=== PATIENT | male | born 1945 | race Caucasian/White ===

== ENCOUNTER → 2023-10-14 06:23 | Day surgery (SDC) | payer MEDICARE, SELFPAY | LOC: GI 06:23 | PROVIDERS: ATTENDING PHYSICIAN Internal Medicine Gastroenterology | DX: Z12.11 Encounter for screening for malignant neoplasm of colon (principal); D12.2 Benign neoplasm of ascending colon; D12.4 Benign neoplasm of descending colon; D12.5 Benign neoplasm of sigmoid colon; K57.30 Diverticulosis of large intestine without perforation or abscess without bleeding; K64.8 Other hemorrhoids; Z86.010 Personal history of colon polyps | CPT/HCPCS: 45380; 88305 ==

== ENCOUNTER → 2024-01-31 14:03 | Outpatient (REF) | payer MEDICARE, SELFPAY | LOC: HWRAD 14:03 | PROVIDERS: ATTENDING PHYSICIAN Physician Assistant Medical | DX: M54.6 Pain in thoracic spine (principal); S22.060G Wedge compression fracture of T7-T8 vertebra, subsequent encounter for fracture with delayed healing; M80.80XG Other osteoporosis with current pathological fracture, unspecified site, subsequent encounter for fracture with delayed healing | CPT/HCPCS: 72128 ==

== ENCOUNTER → 2024-03-21 11:19 | Outpatient (REF) | payer MEDICARE, SELFPAY ==
[2024-03-21 13:57] LABS: Glycohemoglobin (HgbA1c) 5.6 % (4.0-5.6)
[2024-03-21 14:13] LABS: ALT (SGPT) 28 U/L (0-50); AST (SGOT) 29 U/L (17-59); Albumin 4.6 g/dl (3.5-5.0); Alkaline Phosphatase 58 U/L (38-126); Blood Urea Nitrogen 21 mg/dl (9-20); Calcium 9.9 mg/dl (8.4-10.2); Carbon Dioxide 23 mmol/L (22-30); Chloride 104 mmol/L (98-107); Glucose 88 mg/dl (70-99); Potassium 4.8 mmol/L (3.5-5.1); Sodium 141 mmol/L (135-145); Total Bilirubin 0.5 mg/dl (0.2-1.3); Total Protein 7.5 g/dl (6.3-8.2); eGFR > 60.00
== END ==
LOC: REG 11:19
PROVIDERS: ATTENDING PHYSICIAN Internal Medicine Endocrinology, Diabetes & Metabolism
DX: R73.03 Prediabetes (principal)
CPT/HCPCS: 36415; 80053; 83036

== ENCOUNTER → 2024-07-16 13:33 | Outpatient (REF) | payer MEDICARE, SELFPAY | LOC: MRI 3T 13:33 | PROVIDERS: ATTENDING PHYSICIAN Orthopaedic Surgery | DX: M25.511 Pain in right shoulder (principal) | CPT/HCPCS: 73221 ==

== ENCOUNTER → 2024-10-05 06:35 | Outpatient (REF) | payer MEDICARE, SELFPAY ==
[2024-10-05 07:12] LABS: % Basophils 0.8 % (0-2); % Eosinophils 4.5 % (0-6); % Immature Granulocytes 0.2 % (0-0.5); % Lymphocytes 41.5 % (20.5-51.1); % Monocytes 11.7 % (1.7-9.3); % Neutrophils 41.3 % (42.2-75.2); Absolute Eosinophils 0.2 10^3/uL (0-0.7); Absolute Lymphocytes 2.1 10^3/uL (1.2-3.4); Absolute Monocytes 0.6 10^3/uL (0.1-0.6); Absolute Neutrophils 2.1 10^3/uL (1.4-6.5); Hematocrit 39.1 % (39.0-52.0); Hemoglobin 13.4 g/dL (13.0-18.0); Mean Corp Hgb Conc. 34.3 g/dL (33.0-37.0); Mean Corpuscular Hgb 33.7 pg (27.0-31.0); Mean Corpuscular Volume 98.2 fL (80.0-94.0); Mean Platelet Volume 10.4 fL (7.4-10.4); Nucleated Red Blood Cells % 0 % (-); Platelet Count 141 10^3/uL (130-400); Red Blood Cell Count 3.98 10^6/uL (4.70-6.10); Red Cell Dist. Width 13.6 % (11.5-14.5); White Blood Cell Count 5.1 10^3/uL (4.8-10.8)
[2024-10-05 07:41] LABS: ALT (SGPT) 27 U/L (0-50); AST (SGOT) 25 U/L (17-59); Albumin 4.2 g/dl (3.5-5.0); Alkaline Phosphatase 44 U/L (38-126); Blood Urea Nitrogen 18 mg/dl (9-20); Calcium 9.4 mg/dl (8.4-10.2); Carbon Dioxide 26 mmol/L (22-30); Chloride 110 mmol/L (98-107); Glucose 105 mg/dl (70-99); HDL Cholesterol 55 mg/dl; LDL Cholesterol, Calculated 76 mg/dl; Potassium 4.4 mmol/L (3.5-5.1); Sodium 144 mmol/L (135-145); Total Bilirubin 0.6 mg/dl (0.2-1.3); Total Cholesterol 145 mg/dl (50-199); Triglyceride 72 mg/dl (10-149); Very Low Density Lipoprotein 14 mg/dl (0-30); eGFR > 60.00
== END ==
LOC: REG 06:35
PROVIDERS: ATTENDING PHYSICIAN Family Medicine; OTHER PHYSICIAN Internal Medicine Endocrinology, Diabetes & Metabolism
DX: R79.9 Abnormal finding of blood chemistry, unspecified (principal); Z01.89 Encounter for other specified special examinations; Z79.899 Other long term (current) drug therapy
CPT/HCPCS: 36415; 80053; 80061; 85025

== ENCOUNTER 2025-01-03 10:10 | Emergency (ER) | payer MEDICARE, SELFPAY ==
[2025-01-03 10:18] VITALS: BP 144/66
--- NOTE | 2025-01-03 10:31 | ED.GENMED ---
History of Present Illness
General
Chief Complaint: Abdominal Symptoms
Source: patient
Exam Limitations: none
Time Seen by Provider: 01/03/25 10:26
Nursing documentation reviewed up to this point in time: agreed with
History of Present Illness
History of Present Illness:
Patient is an 79-year-old male past medical history of CAD dysphagia reflux gallstones lung cancer diverticulitis renal stones, C. difficile presents to the ER for evaluation. For the past several days patient has had right-sided back pain and
recently noticed lower abdominal discomfort. He has had some discomfort with urination today he describes this as a feeling the sensation he is already passed a kidney stone. This feels similar to his pain in the past with passing kidney stones.
He also has a history of diverticulitis. He denies any recent hematuria. He had mild chills. He did have an episode of loose stools.
He denies any recent cough chest pain shortness of breath. Denies any recent antibiotic use. He denies any injury but does report he has been doing a lot of work outside and lifting 50 pound bags. He does report pain in the back seems to come and
go. Denies any rash fever chills.
Past History
Past History
ED Past Medical History: Cancer (Skin, LLL Lung CA), GERD, Hypercholesterolemia and Other (Diverticulitis, C-diff, Kidney stones, Duodenal Ulcers)
ED Past Surgical History: Orthopedic (Right rotator cuff right repair, Left Tib/Fib plateu fracture with repair, right wrist surgery, ) and Other (Lung removal)
Social History
Tobacco: Non-smoker
Alcohol: None
Drug: None
Personal:
Living: with family
Employment: Retired
Family History
Family History: Early CAD
Phy Exam
General Physical Exam
General Presentation: no apparent distress
General age: appears stated age
General Skin: warm and dry
General Habitus: elderly
General Mental: alert
General Hydration: appears well hydrated
Cardiovascular Exam
Cardiovascular Exam: regular rate/rhythm, no murmur and normal peripheral pulses
Pulmonary Exam
Pulmonary Exam: lungs clear and no respiratory distress
Gastrointestinal Exam
Gastrointestinal Exam: non tender and soft
Neurological Exam
Neurological Exam: alert and oriented x3
Musculoskeletal Exam
Musculoskeletal Exam: full ROM
Skin Exam
Skin Exam: normal color and warm/dry
Psychiatric Exam
Psychiatric Exam: normal mood/affect
Course
Orders/Labs/Results
Orders:
Orders
01/03/25 10:30
IV Insert/Care/Rem.- Treatment PRN
0.9% Sodium Chloride 1000 ml [Nss] 1,000 ml IV BOLUS
01/03/25 10:37
CT Abd/Pel (IV only)-DH only Urgent
Comment:
Reason For Exam: right flank /lower abd pain hx of divertic /stones
01/03/25 10:50
Complete Blood Count/With Diff Urgent
Comprehensive Metabolic Panel Urgent
01/03/25 11:17
Urinalysis Reflex To Culture Urgent
Date Specimen was Collected: 01/03/25
Time Specimen was Collected: 11:11
01/03/25 12:54
Diphenhydramine [Benadryl] 50 mg IV NOW STA
Hydrocortisone Sod Succinate [Solu-Cortef] 200 mg IV NOW STA
01/03/25 15:36
CT Chest PE Study Urgent
Comment:
Reason For Exam: right back pain
Abnormal Lab Results
01/03/25
10:50
RBC 4.21 L 10^6/uL
(4.70-6.10)
MCV 95.5 H fL
(80.0-94.0)
MCH 32.5 H pg
(27.0-31.0)
Absolute Monos (auto) 0.7 H 10^3/uL
(0.1-0.6)
Monocytes % 10.6 H %
(1.7-9.3)
Chloride 108 H mmol/L
(98-107)
Glucose 130 H mg/dl
(70-99)
01/03/25 10:50
01/03/25 10:50
Vital Signs
Initial and Last Documented VS:
Initial Vital Signs
Temp Pulse Resp BP Pulse Ox
97.8 F 71 18 144/66 98
01/03/25 10:18 01/03/25 10:18 01/03/25 10:18 01/03/25 10:18 01/03/25 10:18
Last Documented Vital Signs
Temp Pulse Resp BP Pulse Ox
97.8 F 79 21 145/65 97
01/03/25 10:18 01/03/25 16:15 01/03/25 16:15 01/03/25 16:15 01/03/25 16:15
*Radiology
Radiology exam reviewed: radiology read reviewed
*Pulse Oximetry
SaO2: 98
Oxygen Mode of Delivery: Room air
Patient hypoxic: no
*Critical Care Note
Total Time (30-74mins, 75-104mins- exclusive of procedures): Not Applicable
ED Attending Note
-
Portions of this chart may have been created with voice recognition software.� Occasional wrong word or��sound alike� substitutions may have occurred due to the inherent limitations of voice recognition software.
Discharge Plan
Departure
Patient Disposition: Home (Routine Discharge)
Date of Disposition: 01/03/25
Time of Disposition: 16:31
Patient with high blood pressure during this ER visit?: Yes
Condition: Fair
Covid-19: Not Applicable
Discharge Problem:
Back pain
Instructions: Back Pain, BLOOD PRESSURE
Prescriptions:
No Action
omeprazole 10 mg Capsule,Delayed Release(Dr/Ec)
10 mg PO DAILY
simvastatin 20 mg Tablet
20 mg PO HS
Saccharomyces boulardii [Florastor] 250 mg Capsule
250 mg PO QPM
tadalafil [Cialis] 5 mg Tablet
5 mg PO DAILY
ri-ccb-ND-Aq-Al-tlhymdg-lutein 0.4-162-18 mg Tablet
1 tab PO DAILY
Digestive Health Probiotic 10 billion cell Capsule
1 cap PO DAILY
omega 7-rdc-jhz-fish oil [Fish Oil] 1,200 (144-216) mg Capsule
1 cap PO DAILY
calcium carbonate [Calcium 600] 600 mg calcium (1,500 mg) Tablet
600 mg PO DAILY
Referrals:
Karma Bell MD [Family Provider, Family Practice]
Activity Restrictions/Additional Instructions:
As discussed your workup was unremarkable here in the ER. There were no acute abnormalities in your blood work. Your urinalysis was negative for infection. Your CAT scan was negative for kidney stone negative for diverticulitis negative for blood
clot in your lung. As discussed this could be muscular. Please follow-up with your family doctor in the next several days return if any worsening of symptoms. You may take Tylenol as needed.
Interventions
Interventions:
*Risk Screen - Suicide Last Done: 01/03/25 10:18
*General Assessment Last Done: 01/03/25 10:18
*Neglect/Abuse Screening Last Done: 01/03/25 10:18
*ED- Fall Risk Assessment Last Done: 01/03/25 11:40
*ED COVID-19 Vaccine History Last Done: 01/03/25 13:11
ZD-Gjovsf-Vrvfmmiqip Assessment Last Done: 01/03/25 11:40
Discharge Date and Time
Print Language: MARTINIQUAIS
[2025-01-03] MEDS: NSS 1000 IV (10:52)
[2025-01-03 11:32] LABS: Urine Character Clear (Clear)
[2025-01-03 11:32] LABS: Hematocrit 40.2 % (39.0-52.0); Hemoglobin 13.7 g/dL (13.0-18.0); Mean Corp Hgb Conc. 34.1 g/dL (33.0-37.0); Mean Corpuscular Volume 95.5 fL (80.0-94.0); Nucleated Red Blood Cells % 0 % (-); Platelet Count 152 10^3/uL (130-400); Red Cell Dist. Width 13.6 % (11.5-14.5)
[2025-01-03 11:50] LABS: ALT (SGPT) 22 U/L (0-50); AST (SGOT) 22 U/L (17-59); Albumin 4.4 g/dl (3.5-5.0); Alkaline Phosphatase 54 U/L (38-126); Blood Urea Nitrogen 16 mg/dl (9-20); Calcium 9.6 mg/dl (8.4-10.2); Carbon Dioxide 23 mmol/L (22-30); Chloride 108 mmol/L (98-107); Glucose 130 mg/dl (70-99); Potassium 4.2 mmol/L (3.5-5.1); Sodium 139 mmol/L (135-145); Total Protein 7.1 g/dl (6.3-8.2); eGFR > 60.00
[2025-01-03] MEDS: BENADRYL 50 MG IV (13:04)
[2025-01-03] MEDS: SOLU-CORTEF 200 MG IV (13:07)
[2025-01-03 13:10] VITALS: BP 148/76
[2025-01-03 16:15] VITALS: BP 145/65
== END 2025-01-03 16:51 | disposition home or self-care (01) ==
LOC: EMR 10:10
PROVIDERS: Nurse Practitioner; EMERGENCY PHYSICIAN Emergency Medicine; FAMILY PHYSICIAN Family Medicine
DX: M54.9 Dorsalgia, unspecified (principal); R10.30 Lower abdominal pain, unspecified; E78.00 Pure hypercholesterolemia, unspecified; I25.10 Atherosclerotic heart disease of native coronary artery without angina pectoris; Z85.118 Personal history of other malignant neoplasm of bronchus and lung; Z85.828 Personal history of other malignant neoplasm of skin; Z87.442 Personal history of urinary calculi
CPT/HCPCS: 96374; 96375; 96361; 99284; 71275; 74177; 80053; 81003; 85025; Q9967

== ENCOUNTER → 2025-02-05 13:16 | Outpatient (REF) | payer MEDICARE, SELFPAY | LOC: RAD 13:16 | PROVIDERS: ATTENDING PHYSICIAN Physician Assistant; FAMILY PHYSICIAN Family Medicine | DX: R05.8 Other specified cough (principal) | CPT/HCPCS: 71046 ==

== ENCOUNTER → 2025-04-23 08:26 | Outpatient (REF) | payer MEDICARE, SELFPAY ==
[2025-04-23 10:35] LABS: ALT (SGPT) 30 U/L (0-50); AST (SGOT) 29 U/L (17-59); Albumin 4.6 g/dl (3.5-5.0); Alkaline Phosphatase 56 U/L (38-126); Blood Urea Nitrogen 19 mg/dl (9-20); Calcium 9.7 mg/dl (8.4-10.2); Carbon Dioxide 28 mmol/L (22-30); Chloride 104 mmol/L (98-107); Glucose 100 mg/dl (70-99); Potassium 4.1 mmol/L (3.5-5.1); Sodium 138 mmol/L (135-145); Total Protein 7.7 g/dl (6.3-8.2); eGFR > 60.00
[2025-04-23 10:59] LABS: Glycohemoglobin (HgbA1c) 5.8 % (4.0-5.9)
== END ==
LOC: REG 08:26
PROVIDERS: ATTENDING PHYSICIAN Internal Medicine Endocrinology, Diabetes & Metabolism
DX: R73.03 Prediabetes (principal)
CPT/HCPCS: 36415; 80053; 83036